=== PATIENT | female | born 1935 | race Caucasian/White ===

== ENCOUNTER → 2016-12-21 | Outpatient (CLI) | payer MEDICARE ==
--- NOTE | ~2016-12-21 | NDGEN ---
PATIENT'S NAME: LEONARD GARCIA [facility] AGE: 81 Y [address] ROOM: [place] [id number] LOCATION: [facility] ADMIT DATE: 12/21/2016 Neurodiagnostics DISCHARGE DATE: FAMILY PHYSICIAN: Ruslan Chong MD ATTENDING PHYSICIAN: BILLY PRATER PROCEDURE: ELECTROENCEPHALOGRAM DATE OF PROCEDURE: 12/21/2016 INDICATIONS: This is an 81-year-old female patient who has some symptoms of vertigo but also was complaining about her legs giving out and the possibility that she may have a lumbar radiculopathy. On physical exam today, briefly, her muscles were tested both proximally and distally and she demonstrated full power. In the feet, she had normal power in dorsiflexion, plantar flexion, and eversion of the feet. Sensory perception throughout her legs and into her feet were all normal with normal proprioception. Nerve conductions studies were performed in the motor, perineal, and tibial nerves as well as the sensory sural nerves bilaterally. The only abnormality found was a prolongation of motor onset latencies in the right peroneal nerve with low amplitudes of less than 1 mV. There was no slowing at the fibular head and the patient did not have any weakness demonstrated that would explain the slowing of this nerve. This nerve conduction study was repeated twice for clarity and the same finding was seen. The sural nerves studies showed normal peak onset latencies and normal velocities. Needle EMG was next put into the bilateral lower extremities and showed normal recruitment of motor unit action potentials in the tibialis anterior and the gastrocnemius muscles. With the muscles at rest, the needle exam did not show any abnormal spontaneous electrical activity such as fibrillation potentials and positive sharp waves. IMPRESSION: Essentially this nerve conduction study of the bilateral lower extremities was normal. However, there was slowing of the right peroneal nerve in isolation. The etiology for this is very unclear as the patient has no symptoms in this leg particularly such as numbness, no radicular symptoms of pain along the sciatic nerve root because of high arched feet. This may have some type of morphology of Fhyuodq-[id number]-Nfrzj but in isolation in only one lower extremity without any evidence of numbness, a hereditary motor sensory neuropathy seems less likely. PATIENT'S NAME: LEONARD GARCIA [facility] AGE: 81 Y [address] ROOM: [place], [place] [id number] LOCATION: [facility] ADMIT DATE: 12/21/2016 Neurodiagnostics DISCHARGE DATE: FAMILY PHYSICIAN: Ruslan Chong MD ATTENDING PHYSICIAN: BILLY PRATER MD LAURA CURTIS/marck /[id number] dtt: 12/26/16 1142 , BILLY PRATER dtd: 12/21/16 1055
== END | disposition disaster alternative care site (69) ==
LOC: GNEU 08:49
DX: M62.81 Muscle weakness (generalized) (principal); M47.892 Other spondylosis, cervical region